=== PATIENT | female | born 1945 | race Caucasian/White ===

== ENCOUNTER 2019-10-22 15:02 | Outpatient (CLI) | payer MEDICARE ==
--- NOTE | 2019-10-22 15:37 | RAD ---
XR Femur Lt 2 View STANDARD HISTORY: Left anterior lower limb pain, osteoporosis COMPARISON: None. FINDINGS: The left femur is intact.
--- NOTE | 2019-10-22 15:38 | BD ---
EXAM: Bone densitometry using DEXA HISTORY: 74 yo female. Screening for postmenopausal osteoporosis FINDINGS: L1--bone mineral density 0.723 g/sq cm; T score -2.4 ; Z score -0.2 L2--bone mineral density 0.738 g/sq cm; T score -2.6 ; Z score -0.2 L3--bone mineral density 0.672 g/sq cm; T score -3.7 ; Z score -1.2 L4--bone mineral density 0.703 g/sq cm; T score -2.3 ; Z score -0.6 Total L1-L4--bone mineral density 0.707 g/sq cm; T score -3.1 ; Z score -0.6 Left femoral neck--bone mineral density0.404; T score -4.0 ; Z score -1.9 Total proximal left femur--bone mineral density 0.541; T score -3.3 ; Z score -1.4 IMPRESSION: Osteoporosis
== END 2019-10-22 15:03 | disposition home or self-care (01) ==
LOC: BICMAMMO 15:02
PROVIDERS: ATTEND Family Medicine
DX: M81.0 Age-related osteoporosis without current pathological fracture (principal); M79.605 Pain in left leg
CPT/HCPCS: 77080

== ENCOUNTER 2021-03-30 01:21 | Emergency (ER) | payer MEDICARE, OTHER ==
[2021-03-30 02:11] LABS: #Eosinphils 0.1 thou/uL (0.0-0.7); #Lymphocytes 1.1 thou/uL (1.20-3.40); #Monocytes 0.4 thou/uL (0.11-0.59); #Neutrophils 7.8 thou/uL (1.40-6.50); %Basophils 0.5 % (0.0-1.0); %Eosinophils 0.5 % (0.0-10.0); %Lymphocytes 11.4 % (21.0-51.0); %Monocytes 3.9 % (0.0-10.0); %Neutrophils 83.7 % (42.0-75.0); Hemoglobin 12.5 g/dL (12.0-16.0); Mean Corpuscular HGB CONC 34.4 g/dL (32.0-36.0); Mean Corpuscular Hemoglobin 33.3 pg (27.0-31.0); Mean Corpuscular Volume 96.8 fL (78.0-98.0); Mean Platelet Volume 9.9 fL (7.4-10.4); Platelet Count 185 thou/uL (130-400); RBC Distribution Width 10.7 % (11.5-14.5); Red Blood Cell (RBC) Count 3.74 mill/uL (4.20-5.40); White Blood Cell (WBC) Count 9.3 thou/uL (4.8-10.8)
[2021-03-30 02:30] LABS: ALT (SGPT) 10 U/L (8-55); AST (SGOT) 16 U/L (5-34); Albumin 3.9 g/dL (3.4-4.8); Alkaline Phosphatase 47 U/L (40-110); Anion Gap 13 mmol/L (10-20); BUN (Urea Nitrogen) 8 mg/dL (9.8-20.1); Bilirubin, Total 0.4 mg/dL (0.2-1.2); Calc. Creatinine Clearance 0 mL/min (70-130); Calcium 8.5 mg/dL (7.8-10.44); Carbon Dioxide 24 mmol/L (23-31); Chloride 97 mmol/L (98-107); Globulin 2.6 g/dL (2.4-3.5); Glucose 147 mg/dL (83-110); Lipase 30 U/L (8-78); Potassium 3.5 mmol/L (3.5-5.1); Protein, Total 6.5 g/dL (5.8-8.1); Sodium 130 mmol/L (136-145)
== END 2021-03-30 04:44 | disposition home or self-care (01) ==
LOC: ERS 01:21
DX: R42 Dizziness and giddiness (principal); R11.2 Nausea with vomiting, unspecified
CPT/HCPCS: 36415; 70450; 71045; 80053; 83690; 84484; 85025; 93005

== ENCOUNTER 2021-04-05 09:31 | Outpatient (CLI) | payer OTHER | END 2021-04-05 09:32 | disposition home or self-care (01) | LOC: BICRAD 09:31 | PROVIDERS: ATTEND Family Medicine | DX: M54.5 Low back pain (principal); M25.552 Pain in left hip; M47.816 Spondylosis without myelopathy or radiculopathy, lumbar region | CPT/HCPCS: 72100 ==

== ENCOUNTER 2022-02-27 08:31 | Outpatient (CLI) | payer MEDICARE | END 2022-02-27 08:32 | disposition home or self-care (01) | LOC: BICRAD 08:31 | PROVIDERS: ATTEND Internal Medicine Rheumatology | DX: M81.0 Age-related osteoporosis without current pathological fracture (principal); M47.814 Spondylosis without myelopathy or radiculopathy, thoracic region | CPT/HCPCS: 72072 ==

== ENCOUNTER 2023-12-18 13:53 | Outpatient (CLI) | payer MEDICARE | END 2023-12-18 13:54 | disposition home or self-care (01) | LOC: BICRAD 13:53 | PROVIDERS: ATTEND Internal Medicine Rheumatology | DX: M81.0 Age-related osteoporosis without current pathological fracture (principal); M47.814 Spondylosis without myelopathy or radiculopathy, thoracic region | CPT/HCPCS: 72072 ==